=== PATIENT | male | born 1975 | race Caucasian/White ===

== ENCOUNTER 2020-12-10 11:44 | Outpatient (REF) | payer OTHER, BC, SELFPAY ==
--- NOTE | ~2020-12-10 | XR_ITS ---
EXAMINATION: XR LUMBOSACRAL SPINE CLINICAL INFORMATION: Pain. COMPARISON: None TECHNIQUE: Three views of the lumbosacral spine. FINDINGS: There is normal lumbar lordosis. There are disc prosthesis at L4-L5 and L5-S1 disc levels stabilized with posterior bilateral pedicular screws at L4 and S1 vertebra with interconnecting rods. Rest of the disc levels, all vertebral heights and alignment are normal. No visible acute fracture, dislocation or subluxation seen. The SI joints are symmetrical and normal. XR/XR lumbar spine 2-3V IMPRESSION: L4-L5 and L5/S1 disc prosthesis with posterior hardware for fusion. Rest of the lumbar spine is unremarkable.
== END 2020-12-10 11:45 | disposition home or self-care (01) ==
LOC: HO.HMGCX 11:44
PROVIDERS: PCP Internal Medicine; Visit Provider Nurse Practitioner Family
DX: S39.012A Strain of muscle, fascia and tendon of lower back, initial encounter (principal); Z98.890 Other specified postprocedural states
CPT/HCPCS: 72100